=== PATIENT | female | born 1955 | race Caucasian/White ===

== ENCOUNTER → 2020-11-23 | Outpatient (CLI) | payer OTHER ==
[~2020-11-23] MED LIST: ALDACTONE25 MG PO; ASPIR-TRIN325 MG PO; CARDURA8 MG PO; CATAPRES 0.1MG0.1 MG PO; COMPAZINE10 MG PO; COREG 25MG TAB25 MG PO; DEXILANT60 MG PO; DILTIAZEM 24HR120 MG PO; DURAGESIC 100 MC1 EA TD; HABITROL 14 MG P1 EA TD; KEPPRA1000 MG PO; LEVOCETIRIZINE D5 MG PO; LIPITOR TAB 2020 MG PO; MONTELUKAST SOD10 MG PO; NEURONTIN 400400 MG PO; PERCOCET 10-321 EACH PO; PLAVIX 75 MG TA75 MG PO; SYNTHROID50 MCG PO; ZETIA 10 MG TAB10 MG PO
== END ==
LOC: KOH-I 14:30
DX: Z12.2 Encounter for screening for malignant neoplasm of respiratory organs (principal); F17.210 Nicotine dependence, cigarettes, uncomplicated; R91.1 Solitary pulmonary nodule; J98.11 Atelectasis; I25.10 Atherosclerotic heart disease of native coronary artery without angina pectoris
CPT/HCPCS: 71271

== ENCOUNTER → 2021-01-05 | Outpatient (CLI) | payer OTHER | LOC: HEART CORB 17:30 | DX: R00.0 Tachycardia, unspecified (principal) ==

== ENCOUNTER → 2021-01-17 | Outpatient (CLI) | payer OTHER | LOC: HEART CORB 14:30 | DX: I10 Essential (primary) hypertension (principal); R06.02 Shortness of breath; R00.0 Tachycardia, unspecified; I07.1 Rheumatic tricuspid insufficiency; I27.20 Pulmonary hypertension, unspecified; R93.1 Abnormal findings on diagnostic imaging of heart and coronary circulation | CPT/HCPCS: 93306 ==

== ENCOUNTER → 2021-11-21 | Outpatient (CLI) | payer OTHER ==
[~2021-11-21] VITALS: Ht 162.6 cm; Wt 54.4 kg
== END ==
LOC: OPSV 13:00
DX: M81.0 Age-related osteoporosis without current pathological fracture (principal)
CPT/HCPCS: 96365; J3489